=== PATIENT | female | born 1965 | race Caucasian/White ===

== ENCOUNTER 2021-10-20 14:52 | Emergency (ER) | payer BC, OTHER ==
[2021-10-20] MEDS ORDERED: Acetaminophen/oxyCODONE 325-5 MG Tab PO ONE (16:34)
[2021-10-20] MEDS ORDERED: Ketorolac 60 MG/2 ML SDV IM ONE (16:34)
[2021-10-20 20:54] VITALS: BP 124/62; PULSE 68
== END 2021-10-20 21:13 | disposition home or self-care (01) ==
LOC: MW.ED 14:52
DX: S42.251A Displaced fracture of greater tuberosity of right humerus, initial encounter for closed fracture (principal); I10 Essential (primary) hypertension; K21.9 Gastro-esophageal reflux disease without esophagitis; Z79.82 Long term (current) use of aspirin; Z79.899 Other long term (current) drug therapy; W00.0XXA Fall on same level due to ice and snow, initial encounter; Y93.01 Activity, walking, marching and hiking
CPT/HCPCS: 73030; 73060; 96372; 99283; A9270; J1885